=== PATIENT | male | born 1985 ===

== ENCOUNTER → 2020-01-02 10:05 | Outpatient (BNVA) | payer BC, OTHER, SELFPAY | PROVIDERS: Family Provider Physician Assistant Medical; PCP Nurse Practitioner Family; Visit Provider Counselor Professional | DX: F33.1 Major depressive disorder, recurrent, moderate (principal); F41.1 Generalized anxiety disorder; F15.20 Other stimulant dependence, uncomplicated | CPT/HCPCS: 90791 ==

== ENCOUNTER 2020-01-08 17:47 | Inpatient (IN) | payer BC, SELFPAY ==
[2020-01-08 18:13] VITALS: BP 124/79; PULSE 80; RESP 16; TEMP 36.8; O2SAT 97; BMI 25.8
--- NOTE | 2020-01-08 18:47 | ECG_ITS ---
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 Measurements Intervals [place] Rate: 68 P: 61 WI: 179 QRS: 25 QRSD: 89 T: 22 QT: 366 QTc: 390 Interpretive Statements SINUS RHYTHM No previous ECG available for comparison Electronically Signed On 01-08-2020 21:40:22 CDT by Erika Morales M.D. [id number]
--- NOTE | 2020-01-08 18:54 | W.ED.PSYCH ---
HPI - Psych General: Chief Complaint: Psychiatric Symptoms Stated Complaint: Mental Health Evaluation Time Seen by Provider: 01/08/20 18:43 Source: patient Mode of arrival: ambulatory Limitations: no limitations History of Present Illness: HPI Narrative: Berry is a very nice 34-year-old male who comes in complaining of suicidal ideation. He states that he is recently been in an affair and using drugs and alcohol behind his 's back. Because of the guilt and depression he feels as though he wants to kill himself. He has a plan to start a car in his garage and by carbon monoxide poisoning. Patient also states that he has been relapsed on drugs and alcohol. Because of all the guilt and depression and substance abuse problems he states he wants to come in to get help. Review of Systems Const: Denies: fever(s), chills, body aches, fatigue, malaise or diaphoresis Eyes: Denies: change in vision, blurry vision, photophobia, eye discomfort, eye discharge, eye redness or yellow eyes ENMT: Denies: throat pain, odynophagia, hoarseness, swelling of lips/tongue, ear or mastoid pain, ear discharge, change in hearing or nasal discharge Card: Denies: chest pain, palpitations, irregular heart rhythm, edema, lightheadedness, syncope, pre-syncope, dyspnea on exertion or orthopnea Resp: Denies: dyspnea, productive cough, non-productive cough, wheezing, hemoptysis or chest congestion GI: Denies: abdominal pain, nausea, vomiting, hematemesis, coffee ground emesis, heartburn, diarrhea, constipation, GI cramping, hematochezia or melena : Denies: flank pain, dysuria, urinary frequency, urinary urgency or hematuria Musc: Denies: neck pain, back pain, extremity pain, extremity swelling, joint pain, joint swelling, joint redness, joint warmth or joint stiffness Skin/Breast: Denies: rash, pruritus, erythema, skin pain or skin tenderness Neuro: Denies: headache(s), numbness in extremities, weakness in extremities, sensory changes, lack of coordination, difficulty walking, dizziness, vertigo, confusion, Slurred speech present or seizure-like activity Justin/Lymph: Denies: easy bruising, easy bleeding, petechiae, purpura or enlarged lymph nodes All/Imm: Denies: urticaria, throat swelling, tongue swelling, facial swelling or acute wheezing PFSH ED PFSH: Medical History No pertinent past medical history Social History Current gender identity: Male Physical Exam Const: COMMON NORMALS: no acute distress, patient oriented x3, no limitations and alert GENERAL APPEARANCE: cooperative HENMT: COMMON NORMALS: normocephalic, atraumatic, external ears normal, EAC's normal and Normal external nose present HEAD & SCALP: normal to inspection, normocephalic and atraumatic FACE & SINUS: normal facial exam and face symmetric NOSE: Normal external nose present and Normal nares present EXTERNAL EAR: Yes external ears normal EXTERNAL AUDITORY CANAL: EAC's normal MOUTH: Normal oral and palatal mucosa present, lip normal and tongue normal Eye: COMMON NORMALS: Equal, round and reactive pupils present and conjunctivae normal GENERAL EYE: appearance normal, both eyes and all related structures ALIGNMENT: Yes alignment normal PERIORBITAL: periorbital findings normal EYELID: eyelids normal CONJUNCTIVA: Yes conjunctivae normal SCLERA: sclerae normal PUPIL: Yes Equal, round and reactive pupils present Neck/C-Spine: COMMON NORMALS: full ROM, no lymphadenopathy, supple, no meningeal signs and no JVD GENERAL: Yes normal visual inspection and Yes trachea midline Chest: COMMONS NORMALS: normal inspection of the chest and normal palpation of entire chest wall Resp: COMMON NORMALS: normal respiratory effort, No retractions, No use of accessory muscles and clear to auscultation bilaterally EFFORT & INSPECTION: Yes able to speak in complete sentences and Yes symmetric chest movement AUSCULTATION: clear to auscultation bilaterally, no crackles, no rales, no rhonchi and no wheezes Cardio: COMMON NORMALS: no JVD, regular rate, regular rhythm, S1 normal heart sound present and S2 normal heart sound present RATE: regular rate RHYTHM: regular rhythm HEART SOUNDS: S1 normal heart sound present, S2 normal heart sound present, no click, no gallops, no murmurs and no rubs GI: COMMON NORMALS: Soft to palpation and No hepatosplenomegaly present PALPATION: Yes Soft to palpation, No Tenderness to palpation present (GI), No Guarding due to palpation present (GI), No Rigid due to palpation, Yes No hepatosplenomegaly present, No Hernia present, No Palpable mass present and No Pulsatile mass present : COMMON NORMALS: Yes no CVA tenderness BLADDER/KIDNEY EXAM: Yes no CVA tenderness Back/Pelvis: COMMON NORMALS: no CVA tenderness, thoracic and lumbar spine normal to inspection, no thoracic nor lumbar tenderness and thoraco-lumbar ROM normal Extremity: COMMON NORMALS: normal to inspection, full ROM, capillary refill normal, no joint enlargement, no clubbing, cyanosis or edema and no calf tenderness Neuro: COMMON NORMALS: patient oriented x3, CN's II-XII intact bilaterally, moves all extremities, no focal motor deficits and no sensory deficits noted SENSORIUM/ORIENTATION: Yes alert MENINGEAL SIGNS: Yes no meningeal signs SPEECH: speech normal Psych: COMMON NORMALS: mental status grossly normal, Normal thought process present, cooperative, normal affect, speech normal and activity/motor behavior normal SPEECH: Yes normal speech THOUGHT PROCESS: Normal thought process present Skin: COMMON NORMALS: no rashes or lesions noted, turgor normal, no jaundice, no petechiae and no mottling GENERAL SKIN EXAM: no rashes or lesions noted and turgor normal MDM - Psych MDM Narrative: Medical decision making narrative: The case was reviewed with Dr. Borrero, he agrees accept the patient to the neuropsychiatric unit. Lab Data: Labs: Lab Results 01/08/20 Range/Units 10:44 Urine Color Yellow (Yellow) Urine Appearance Clear (CLEAR) Urine pH 7 (5-7) Ur Specific Gravit y 1.005 (1.005-1.030) Urine Protein Neg (Negative) Urine Glucose (UA) Norm (Normal) Urine Ketones Negative (Negative) Urine Blood Neg (Negative) Urine Nitrate Negative (Negative) Urine Bilirubin Neg (Negative) Urine Urobilinogen Neg (Negative) mg/dL Ur Leukocyte Elizabeth ase Negative (Negative) EKG Data^: EKG 1: Attestation: I personally reviewed and interpreted this EKG as follows: EKG interpretation date: 01/08/20 EKG interpretation time: 19:28 Interpretation: NSR @ 68, no blocks, normal intervals, no acute ST-T wave changes. Discharge Plan Discharge Patient Disposition: Admitted As Inpatient Admit Provider: Farrukh Borrero Clinical Impression: Suicidal ideation Condition: Stable Coding Level of Care Code ED Information Services Manager for Chg Fwd Exam Comprehensive
[2020-01-08 19:09] LABS: Add Urine Microscopic? NO
[2020-01-08] MEDS: LORazepam 1 mg Tablet PO (19:13)
[2020-01-08 19:19] LABS: Bilirubin Urine Neg (Negative); Blood Urine Neg (Negative); Glucose Urine UA Norm (Normal); Ketones Urine Negative (Negative); Leukocyte Esterase Urine Negative (Negative); Nitrate Urine Negative (Negative); Protein Urine Neg (Negative); Specific Gravity, Urine 1.005 (1.005-1.030); Urine Appearance Clear (CLEAR); Urine Color Yellow (Yellow); Urobilinogen Urine Neg (Negative); pH Urine 7 (5-7)
[2020-01-08 19:25] VITALS: BP 136/84; PULSE 88; RESP 20; O2SAT 97
[2020-01-08 19:32] LABS: Basophils # 0.1 10^3/uL (0.0-0.1); Basophils % 0.6 %; Eosinophils # 0.3 10^3/uL (0.0-0.8); Eosinophils % 2.8 %; Hematocrit 47.7 % (42.0-52.0); Hemoglobin 15.6 g/dL (11.7-16.6); Lymphocytes # 2.8 10^3/uL (0.8-4.8); Lymphocytes % 24.5 %; Mean Corpuscular HGB Conc 32.7 g/dL (30.0-36.0); Mean Corpuscular Hemoglobin 30.7 pg (28.0-34.0); Mean Corpuscular Volume 93.9 fL (80-94); Mean Platelet Volume 10.9 fL (7.4-10.4); Monocytes # 0.7 10^3/uL (0.2-0.9); Monocytes % 6.5 %; Neutrophils # 7.42 10^3/uL (1.8-7.7); Neutrophils % 65.2 %; Nucleated Red Blood Cells % 0 %; Platelet Count 246 10^3/cmm (130-400); Red Blood Count 5.08 10^6/uL (4.1-5.3); Red Cell Distribution Width 13.2 % (12.1-15.1); White Blood Count 11.4 10^3/uL (4.0-10.0)
[2020-01-08 19:56] LABS: Alanine Aminotransferase 25 U/L (0-41); Albumin Level 4.4 g/dL (3.5-5.2); Alkaline Phosphatase 90 IU/L (40-130); Anion Gap 16.1 (5-19); Aspartate Amino Transferase 22 U/L (0-40); Blood Urea Nitrogen 11 mg/dL (6-20); Calcium 9.3 mg/dL (8.5-10.5); Carbon Dioxide 25 mmol/L (22-29); Chloride 103 mmol/L (98-107); Globulin 2.4 g/dL (1.3-4.6); Glucose 107 mg/dL (65-115); Osmolality Calculated 290 mOsm/kg (285-295); Potassium 4.1 mmol/L (3.5-5.1); Sodium 140 mmol/L (136-145); Total Bilirubin 0.2 mg/dL (0.15-1.2); Total Protein 6.8 g/dL (6.6-8.7)
[2020-01-08 19:57] LABS: Acetaminophen < 5.0 ug/mL (10-30); Alcohol Level < 10 mg/dL (0-10); Salicylate < 0.3 mg/dL (3-10)
[2020-01-08 20:31] VITALS: BP 135/91; PULSE 75; RESP 18; TEMP 36.6; O2SAT 98
[2020-01-08 22:00] VITALS: BP 135/91; PULSE 75; RESP 18; TEMP 36.6; O2SAT 98
[2020-01-08 22:14] VITALS: BP 136/84; PULSE 88; RESP 18; O2SAT 97
[2020-01-09 06:00] VITALS: BP 109/62; PULSE 55; RESP 17; TEMP 36.8; O2SAT 97
--- NOTE | 2020-01-09 12:05 | P.HP_ITS ---
Providers/Chief Complaint Admitting Physician: Farrukh Borrero MD Chief Complaint: Mental Health Evaluation HPI NPU History of Present Illness Berry Castro is a 34 year old male who presented to the ED with the following report: Chief Complaint: Psychiatric Symptoms Stated Complaint: Mental Health Evaluation Time Seen by Provider: 01/08/20 18:43 Source: patient Mode of arrival: ambulatory Limitations: no limitations History of Present Illness: HPI Narrative: Berry is a very nice 34-year-old male who comes in complaining of suicidal ideation. He states that he is recently been in an affair and using drugs and alcohol behind his 's back. Because of the guilt and depression he feels as though he wants to kill himself. He has a plan to start a car in his garage and by carbon monoxide pois oning. Patient also states that he has been relapsed on drugs and alcohol. Because of all the guilt and depression and substance abuse problems he states he wants to come in to get help. He was admitted to the neuropsychiatric unit for definitive treatment of those issues. Berry presented to the unit reporting that he has had a tough several months. He reports that he is new to this and this is his first psychiatric hospitalization, and he has never had treatment before, outside of medications prescribed a couple of months ago. He reports that he is from [place]. He reports having depression and anxiety really for much of his life, since he was 19 years old, but he always fought through it and worked hard and figured everyone has something that they have to carry with them. But he reports that about two months ago, things got rough in his life, so he went to his primary care physician who put him on a couple of medications, but he cannot recall what they were, but we are looking that up. He said that he stopped taking those medications about a week or two after he started them, just because he did not like the way he was feeling. He reports that he thinks one of them may have been Wellbutrin. He reports that he smokes two packs of cigarettes a day. He drinks about six to twelve cans of alcohol a day, which has been off and on for that last year especially. He has had times he has drank more, but he has mostly been drinking less, but then just recently he started getting stressed. He reports that he does not smoke marijuana. He denies cocaine or opiate use. 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 He said during the last year he has probably only had a month that he was using. He reports that he has never been to a drug rehabilitation. He has had three DUI?s, the last of which was 2012. He reports that, at the heart of his problem, is he had an affair with a girl from work. He reports that he has been working at a place called [employer], for about two and a half years, and that is where he met this young lady. Since May of 2018, when he started there, they have been on and off. They started talking daily and then it was just here and there, and then he started making excuses to see her. He reports that, in October, he told his , although she had suspicion, that he had been cheating, and since then she has moved out to an apartment. His drinking has increased. 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 He reports that they got him into contact with [facility], but it has been very frustrating because he feels like he has gotten the run around and no one has gotten to him, and he has felt more and more depressed. He reports that both his girlfriend and his are supportive, but he said that although he and his love each other, they have trust issues. He reports that he works swing shift and she works a different shift, and that they were growing apart. He reports it is tough because he is not exactly sure what he wants. He reports he has feelings for both people and that he needs to figure that out, but it is hard with his use and depression, etc. so he came here for further treatment. He reports that he has significant depressed mood, and feelings of hopelessness, helplessness, and worthlessness, and some sleep disruption, but it is unclear if that has anything to do with his alcohol consumption recently. He reports feelings of guilt, and he started having suicidal thoughts, which is one of the main reasons why he came to the hospital. He reports that he really wants to get in treatment and get on medication, and get a therapist and get his life back together. PSYCHIATRIC HISTORY: As above. SUBSTANCE ABUSE HISTORY: As above. FAMILY HISTORY: He denies any mental health or addiction issues in his family. He denies any suicide attempts or completions in his family. DEVELOPMENTAL HISTORY: The patient denies any issues with his mother?s or delivery of him. The patient met all developmental milestones on time. The patient denies speech therapy, learning support, emotional support, or special education classes. PSYCHOSOCIAL HISTORY: He reports that his his mother and father were together when he was born, until he was about [age] years old when they and ultimately got a divorce. He reports that they had him and his brother, who is the product of that same union. He denies either of them having any other kids that they are aware of. He reports that he played sports a lot in his childhood, and his parents were arguing a lot in his childhood. He just remembers that when they split up his dad had a girlfriend who became his step-mom very quickly. She had a daughter that was not fun to be around and things were not good, and he does not have any good memories after his parents split up. He graduated from high school and denies additional training. He endorses being heterosexual, with his longest relationship being seven years. He and his have been two years. He reports that he had this affair with the woman before he got , but at that point it was just kind of a fling. He reports that he has been once and is currently . He denies any biological children of his own; when he and his met, her biological children, who are 17 and 13 years old, were adopted by him. But she had gotten a hysterectomy right around the time they got together, so the chance of him having children was gone. He reports that he is Confucianism. 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 He reports he lives in a home, and that it is currently just him there, and his and two children live in an apartment, but before they were all together. LEGAL HISTORY: He reports he has been to [facility] probably about four times. His longest stay in [facility], at one time, was a week; he did thirty days for one of the DUI?s, but he was able to do weekends and that initial week. MEDICAL HISTORY: Denied. Meds NPU Home Medications Medication Instructions Recorded Confirmed Last Taken Type No Known Home Medications 01/02/20 01/08/20 Unknown History Allergies Allergy/AdvReac Type Severity Reaction Status Date / Time No Known Allergies Allergy Unverified 01/02/20 10:17 PFS NPU PFSH: Medical History No pertinent past medical history Social History Current gender identity: Male Mental Status Exam MSE Comments: This is a well-nourished, well-developed, white male, with adequate dress, grooming, and eye contact. No abnormal movements, except for psychomotor retardation. Cooperative with exam in no acute distress. Speech was slightly decreased rate and volume. Mood described as down but calm; affect congruent. Thought process, organized. Thought content: patient denied any suicidal or homicidal ideation, there were no delusions reported or noted, patient denied any auditory or visual hallucinations. Attention, concentration, and memory appear intact but none were formally tested. He is alert and oriented times three. Insight and judgment are good. Vitals/I&O/Wt Last Vital Signs Temp 98.2 F 01/09/20 06:00 Pulse 55 L 01/09/20 06:00 Resp 17 01/09/20 06:00 BP 109/62 01/09/20 06:00 Pulse Ox 97 01/09/20 06:00 Weight last 48 hrs Weight 77.111 kg Data NPU : 01/08/20 19:10 01/08/20 19:10 A&P Assessment and plan (1) Suicidal ideation: Status: Acute (2) Alcohol use: Status: Acute (3) Methamphetamine use: Status: Acute (4) Depression: Status: Acute (5) Marital/partner relational problem: Status: Acute Additional A&P Information This is a 34 year old, white male, with depressive disorder, unspecified, some anxiety, adjustment disorder with mixed disturbance of emotion and conduct, partner relational problem, and some psychosocial stressors in his home life and at work that have led to him being depressed and suicidal, with plans to work with the treatment team to be restarted on medications and get into appropriate treatment options. Continue current medication: we will start Prozac 20 mg po qam, and consider resuming the Wellbutrin because I think what he described might have been a response to BuSpar, which he thinks might be the one medication he had, but we will see. Encourage individual, group, and milieu therapy. Continue q-15 minute checks for safety. Recommend sober living treatment at the highest level of care to which the patient is willing to commit. Involuntary Hold Information 96 Hour Hold: 96 Hour Involuntary Admission: No Attestations NPU Medical Necessity Statement*: Inpatient hospitalization is medically necessary and the clinically appropriate intervention, at this time. We will monitor medications and make changes as indicated. Patient will be in the hospital for over two midnights. Likely length of stay is two to four days. Coding Level of Care Code Acute Manager Field Sales for Glenda Fernandesd Diagnoses Suicidal ideation R45.851 Alcohol use Z72.89 Methamphetamine use F15.10 Depression F32.9 Marital/partner relational problem Z63.0
--- NOTE | 2020-01-09 13:20 | NPU.GN ---
Jud attended Group this afternoon but did not participate. She kept her head down so I am unsure if she was paying attention to what was being talked about. Once the session ended, she appeared to be sleeping when I told her it was time to go back to her room. Cyril did not speak up during Group but did attend and appeared to be listening. He still appeared down and did not make much eye contact but I believe he looked up more than he has in other sessions from the week. Bhanu was the first to speak up and did so often. He was not disruptive but had experiences to share and was a positive member today. Jamari also spoke up quite a bit today, sharing past experiences and had a lot of positive things to say. He had stated yesterday that he doesn't like talking in groups but he's done really well. Berry only spoke up once to say that one of his stress-relievers is to play golf. Other than that, he appeared to be very attentive, making direct eye contact and nodding his head, but did not speak up anymore. Barrington Flowers, Eliseo, and Sanjeev did not attend the group session this afternoon.
[2020-01-09 13:55] VITALS: BP 117/76; PULSE 65; RESP 18; TEMP 36.7; O2SAT 99
[2020-01-09] MEDS: nicotine 2 mg Gum BUCCAL (14:38)
[2020-01-09] MEDS: fluoxetine 20 mg Capsule PO (14:53)
[2020-01-09] MEDS: trazodone 50 mg Tablet PO (21:15)
--- NOTE | 2020-01-09 21:16 | PC.NURSE ---
trazodone Patient requested medication to help him sleep given 50mg PO Trazodone. Will continue to monitor pt
[2020-01-09 22:00] VITALS: BP 113/62; PULSE 60; RESP 18; TEMP 36.5; O2SAT 97
--- NOTE | 2020-01-10 04:34 | PC.NURSE ---
Patient seems relieved to find out that his [facility] paperwork was completed and that he will still have his job at [employer] when he gets out of the unit and doing his rehab for alcohol.
[2020-01-10 06:00] VITALS: BP 92/45; PULSE 50; RESP 16; TEMP 36.7; O2SAT 97
[2020-01-10] MEDS: fluoxetine 20 mg Capsule PO (09:02)
[2020-01-10] MEDS: nicotine 2 mg Gum BUCCAL (12:09)
[2020-01-10 14:00] VITALS: BP 121/69; PULSE 68; RESP 16; TEMP 36.3; O2SAT 98
--- NOTE | 2020-01-10 17:51 | P.PN_ITS ---
Subjective NPU Subjective: Interval history: Berry presents today reporting that he is tolerating medication and denied any significant side effects that he noted. His visited and we had a short session with her outlining the plan as we currently understand it. Specifically discussing the current status of his inpatient rehab bed and the prospect of an outpatient bed in the event that that does not come to fruition in the next week or so. We discussed the possibility of discharge tomorrow. Mental Status Exam MSE Comments: This is a well-nourished, well-developed, white male, with adequate dress, grooming, and eye contact. No abnormal movements, except for resolving psychomotor retardation. Cooperative with exam in no acute distress. Speech was slightly decreased rate and volume. Mood described as a little better; affect congruent. Thought process, organized. Thought content: patient denied any suicidal or homicidal ideation, there were no delusions reported or noted, patient denied any auditory or visual hallucinations. Attention, concentration, and memory appear intact but none were formally tested. He is alert and oriented times three. Insight and judgment are good. Vitals/I&O/Wt Last Vital Signs Temp 98.6 F 01/10/20 20:51 Pulse 72 01/10/20 20:51 Resp 17 01/10/20 20:51 BP 131/79 01/10/20 20:51 Pulse Ox 98 01/10/20 20:51 Data NPU : 01/08/20 19:10 01/08/20 19:10 A&P Additional A&P Information (1) Suicidal ideation: (2) Alcohol use: (3) Methamphetamine use: (4) Depression: (5) Marital/partner relational problem: This is a 34 year old, white male, with depressive disorder, unspecified, some anxiety, adjustment disorder with mixed disturbance of emotion and conduct, partner relational problem, and some psychosocial stressors in his home life and at work that have led to him being depressed and suicidal, with plans to work with the treatment team to be restarted on medications and get into appropriate treatment options. Continue current medication: Encourage individual, group, and milieu therapy. Continue q-15 minute checks for safety. Recommend sober living treatment at the highest level of care to which the patient is willing to commit. Involuntary Hold Information 96 Hour Hold: 96 Hour Involuntary Admission: No Attestations NPU Medical Necessity Statement*: Inpatient hospitalization is medically necessary and the clinically appropriate intervention, at this time. We will monitor m edications and make changes as indicated. Likely length of stay is 1-3 days. Tentative plan for discharge tomorrow. Coding Level of Care Code Acute Equipment Oiler for Glenda Huertas
[2020-01-10] MEDS: trazodone 50 mg Tablet PO (20:44)
[2020-01-10] MEDS: hyDROXYzine 25 mg Capsule 50 MG PO (20:45)
[2020-01-10 20:51] VITALS: BP 131/79; PULSE 72; RESP 17; TEMP 37; O2SAT 98
[2020-01-11 06:00] VITALS: BP 110/72; PULSE 56; RESP 16; TEMP 36.4; O2SAT 98
--- NOTE | 2020-01-11 09:09 | P.DS_ITS ---
Diagnoses at Discharge Discharge Diagnosis (1) Suicidal ideation: Status: Resolved (2) Alcohol use: Status: Acute (3) Methamphetamine use: Status: Acute (4) Depression: Status: Acute (5) Marital/partner relational problem: Status: Acute Reason for Visit Reason for Visit: Mental Health Evaluation Brief History: History of Present Illness Berry Castro is a 34 year old male who presented to the ED with the following report: Chief Complaint: Psychiatric Symptoms Stated Complaint: Mental Health Evaluation Time Seen by Provider: 01/08/20 18:43 Source: patient Mode of arrival: ambulatory Limitations: no limitations History of Present Illness: HPI Narrative: Berry is a very nice 34-year-old male who comes in complaining of suicidal ideation. He states that he is recently been in an affair and using drugs and alcohol behind his 's back. Because of the guilt and depression he feels as though he wants to kill himself. He has a plan to start a car in his garage and by carbon monoxide poisoning. Patient also states that he has been relapsed on drugs and alcohol. Because of all the guilt and depression and substance abuse problems he states he wants to come in to get help. He was admitted to the neuropsychiatric unit for definitive treatment of those issues. Berry presented to the unit reporting that he has had a tough several months. He reports that he is new to this and this is his first psychiatric hospitalization, and he has never had treatment before, outside of medications prescribed a couple of months ago. He reports that he is from [place]. He reports having depression and anxiety really for much of his life, since he was 19 years old, but he always fought through it and worked hard and figured everyone has something that they have to carry with them. But he reports that about two months ago, things got rough in his life, so he went to his primary care physician who put him on a couple of medications, but he cannot recall what they were, but we are looking that up. He said that he stopped taking those medications about a week or two after he started them, just because he did not like the way he was feeling. He reports that he thinks one of them may have been Wellbutrin. He reports that he smokes two packs of cigarettes a day. He drinks about six to twelve cans of alcohol a day, which has been off and on for that last year especially. He has had times he has drank more, but he has mostly been drinking less, but then just recently he started getting stressed. He reports that he does not smoke marijuana. He denies cocaine or opiate use. 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 He said during the last year he has probably only had a month that he was using. He reports that he has never been to a drug rehabilitation. He has had three DUI?s, the last of which was 2012. He reports that, at the heart of his problem, is he had an affair with a girl from work. He reports that he has been working at a place called [employer], for about two and a half years, and that is where he met this young lady. Since May of 2018, when he started there, they have been on and off. They started talking daily and then it was just here and there, and then he started making excuses to see her. He reports that, in October, he told his , although she had suspicion, that he had been cheating, and since then she has moved out to an apartment. His drinking has increased. 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 He reports that they got him into contact with [facility], but it has been very frustrating because he feels like he has gotten the run around and no one has gotten to him, and he has felt more and more depressed. He reports that both his girlfriend and his are supportive, but he said that although he and his love each other, they have trust issues. He reports that he works swing shift and she works a different shift, and that they were growing apart. He reports it is tough because he is not exactly sure what he wants. He reports he has feelings for both people and that he needs to figure that out, but it is hard with his use and depression, etc. so he came her e for further treatment. He reports that he has significant depressed mood, and feelings of hopelessness, helplessness, and worthlessness, and some sleep disruption, but it is unclear if that has anything to do with his alcohol consumption recently. He reports feelings of guilt, and he started having suicidal thoughts, which is one of the main reasons why he came to the hospital. He reports that he really wants to get in treatment and get on medication, and get a therapist and get his life back together. PSYCHIATRIC HISTORY: As above. SUBSTANCE ABUSE HISTORY: As above. FAMILY HISTORY: He denies any mental health or addiction issues in his family. He denies any suicide attempts or completions in his family. DEVELOPMENTAL HISTORY: The patient denies any issues with his mother?s or delivery of him. The patient met all developmental milestones on time. The patient denies speech therapy, learning support, emotional support, or special education classes. PSYCHOSOCIAL HISTORY: He reports that his his mother and father were together when he was born, until he was about [age] years old when they and ultimately got a divorce. He reports that they had him and his brother, who is the product of that same union. He denies either of them having any other kids that they are aware of. He reports that he played sports a lot in his childhood, and his parents were arguing a lot in his childhood. He just remembers that when they split up his dad had a girlfriend who became his step-mom very quickly. She had a daughter that was not fun to be around and things were not good, and he does not have any good memories after his parents split up. He graduated from high school and denies additional training. He endorses being heterosexual, with his longest relationship being seven years. He and his have been two years. He reports that he had this affair with the woman before he got , but at that point it was just kind of a fling. He reports that he has been once and is currently . He denies any biological children of his own; when he and his met, her biological children, who are 17 and 13 years old, were adopted by him. But she had gotten a hysterectomy right around the time they got together, so the chance of him having children was gone. He reports that he is [employer]. 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 He reports he lives in a home, and that it is currently just him there, and his and two children live in an apartment, but before they were all together. LEGAL HISTORY: He reports he has been to residential probably about four times. His longest stay in residential, at one time, was a week; he did thirty days for one of the DUI?s, but he was able to do weekends and that initial week. MEDICAL HISTORY: Denied. Hospital Course Hospital Course Berry presented to the emergency room reporting depression, relapse with active addiction and suicidal thinking. He was admitted to the neuropsychiatric unit for definitive treatment of those issues. On the unit he quickly acclimated to the individual, group and no therapies provided. He started on Prozac and work with the treatment team to obtain referral for a sober living inpatient treatment center and when discharged he was on her list. He demonstrated significant improvement. During hospitalization he had routine laboratory studies which were within normal limits except for a few outliers. Additionally he had a general medical evaluation which was also within normal limits and revealed no new acute processes. Discharge Summary At the time of discharge, he was absolutely michael and psychosis. His mood and anxiety were well managed. He endorsed the plan to avoid all drugs of abuse and follow-up with the treatment team's recommendation after discharge. He was evaluated and deemed absent credible lethality and had achieved the maximum benefit from an inpatient hospitalization, so he was discharged. [facility] papers were filed on his behalf. Involuntary Hold Information 96 Hour Hold: 96 Hour Involuntary Admission: No Mental Status Exam MSE Comments: This is a well-nourished, well-developed, white male, with adequate dress, grooming, and eye contact. No abnormal movements, except for resolving psychomotor retardation. Cooperative with exam in no acute distress. Speech was normal rate and volume. Mood described as better; affect congruent. Thought process, organized. Thought content: patient denied any suicidal or homicidal ideation, there were no delusions reported or noted, patient denied any auditory or visual hallucinations. Attention, concentration, and memory appear intact but none were formally tested. He is alert and oriented times three. Insight and judgment are good. Discharge Data Vitals: Last Vital Signs Temp 97.5 F L 01/11/20 06:00 Pulse 56 L 01/11/20 06:00 Resp 16 01/11/20 06:00 BP 110/72 01/11/20 06:00 Pulse Ox 98 01/11/20 06:00 Discharge Plan Discharge Patient Disposition: Home Condition: Stable Prescriptions: New fluoxetine 20 mg Capsule 20 mg PO DAILY 30 Days Qty: 30 RF: 1 Discharge Orders: Discharge Order (Routine); Ordered 01/11/20 Ordered By: Farrukh Borrero Discharge Diet: Regular Discharge Activity: Resume usual activity Discharge Date/Time: 01/11/20 10:39 Discharge Attestations NPU Time Spent in Discharge Care*: less than 30 min Specific Discharge Activities: Specific discharge activities: educating patient, discussing with hospice case manager/social workers/dc planners, documenting/other paperwork and evaluating patient/reviewing data Coding Level of Care Code Acute Programmer Analyst [facility] for [facility] Fwd Diagnoses Suicidal ideation R45.851 Alcohol use Z72.89 Methamphetamine use F15.10 Depression F32.9 Marital/partner relational problem Z63.0
[2020-01-11 09:18] VITALS: BP 110/72; PULSE 56; RESP 16; TEMP 36.4; O2SAT 98
[2020-01-11] MEDS: fluoxetine 20 mg Capsule PO (09:28)
== END 2020-01-11 10:39 | disposition home or self-care (01) | DRG 882 ==
LOC: ER 19:33 → NP 19:36
PROVIDERS: Family Medicine; Admitting Provider Psychiatry & Neurology Psychiatry; Visit Provider Psychiatry & Neurology Psychiatry
DX: F43.25 Adjustment disorder with mixed disturbance of emotions and conduct (principal); R45.851 Suicidal ideations; Z72.89 Other problems related to lifestyle; F41.8 Other specified anxiety disorders; F17.210 Nicotine dependence, cigarettes, uncomplicated; F15.90 Other stimulant use, unspecified, uncomplicated; Z63.0 Problems in relationship with spouse or partner; F32.9 Major depressive disorder, single episode, unspecified
CPT/HCPCS: 12345; 80053; 80307; 81003; 85025; 93005; 99284

== ENCOUNTER → 2020-04-05 14:26 | Outpatient (BNVA) | payer BC, SELFPAY | PROVIDERS: Visit Provider Nurse Practitioner Family | DX: J06.9 Acute upper respiratory infection, unspecified (principal); Z20.828 Contact with and (suspected) exposure to other viral communicable diseases | CPT/HCPCS: 87635 ==

== ENCOUNTER → 2020-05-12 13:21 | Outpatient (BNVA) | payer BC, SELFPAY | PROVIDERS: Visit Provider Psychiatry & Neurology Psychiatry | DX: F33.1 Major depressive disorder, recurrent, moderate (principal); F17.200 Nicotine dependence, unspecified, uncomplicated; F10.20 Alcohol dependence, uncomplicated; F15.20 Other stimulant dependence, uncomplicated | CPT/HCPCS: 80053; 84443; 85025; 99204 ==